=== PATIENT | male | born 1990 | race Caucasian/White ===

== ENCOUNTER 2016-06-27 21:28 | Emergency (ER) | payer OTHER ==
[2016-06-27 21:44] VITALS: BP 120/72; PULSE 95; BMI 24.9
[2016-06-27] MEDS ORDERED: ACETAMINOPHEN 500 MG TABLET (FP) PO ONE (22:05)
[2016-06-27] MEDS: SODIUM CHLORIDE 1,000 ML IV STA ×2 (22:06→22:12)
[2016-06-27] MEDS ORDERED: ACETAMINOPHEN 325 MG TABLET (FP) ONE (22:07)
--- NOTE | 2016-06-27 22:10 | PDOC ---
History of Present Illness - General Chief Complaint: Cold Symptoms Stated Complaint: FEVER Time Seen by Provider: 06/27/16 21:33 - History of Present Illness Initial Comments: 06/27/16 22:11 This otherwise healthy 25-year-old man presents with a three-day history of fever and sore throat. He denies drooling/change in voice. The patient has taken regular doses of "Advil cold and sinus" over the last few days with recurrent fever to 103 degrees Fahrenheit. Patient denies runny nose/earache/cough/gastrointestinal symptoms. No known contact with other people with fever or sore throat. No contact with school- aged children. Does not recall having strep pharyngitis as an adult, however, had episode of pharyngitis last year requiring incision and drainage of apparent peritonsillar abscess. No recent travel No significant past medical history On no medication except for [id number] meds, as noted above Past History - Past Medical History Allergies/Adverse Reactions: Allergies Allergy/AdvReac Type Severity Reaction Status Date / Time No Known Allergies Allergy Verified 06/04/11 18:26 Home Medications: Ambulatory Orders None 06/04/11 Azithromycin 250 mg PO DAILY #4 tablet 06/27/16 Chlorphen/Pseudoeph/Ibuprofen [Advil Allergy Sinus Caplet] 1 each PO PRN PRN Anemia: No Asthma: No Cancer: No Cardiac Disorders: No CVA: No COPD: No CHF: No Dementia: No Diabetes: No GI Disorders: No Disorders: No HTN: No Hypercholesterolemia: No Liver Disease: No Seizures: No Thyroid Disease: No Other medical history: DENIES - Surgical History Abdominal Surgery: No Appendectomy: Yes Cardiac Surgery: No Cholecystectomy: No Lung Surgery: No Neurologic Surgery: No Orthopedic Surgery: No - Psycho/Social/Smoking Cessation Hx Anxiety: No Suicidal Ideation: No Smoking History: Never smoked Hx Alcohol Use: No Drug/Substance Use Hx: No Hx Substance Use Treatment: No Review of Systems - Review of Systems Able to Perform ROS?: Yes Comments:: 12 point review of systems is negative except for what is noted in the history of present illness *Physical Exam - Vital Signs Last Vital Signs Temp Pulse Resp BP Pulse Ox 103 F H 95 H 16 120/72 97 06/27/16 21:42 06/27/16 21:42 06/27/16 21:42 06/27/16 21:42 06/27/16 21:42 - Physical Exam Comments: GENERAL: The patient is awake, alert, and fully oriented, in no acute distress. Vital signs as noted. HEAD: Normal with no signs of trauma. EYES: Pupils equal, round and reactive to light, extraocular movements intact, sclera anicteric, conjunctiva clear with no pallor. ENT: moist mucous membranes. Ears normal, nares patent Oropharynx erythematous without edema or exudates NECK: Normal range of motion, supple , JVD, or masses. Bilateral, tender anterior cervical lymphadenopathy LUNGS: Breath sounds equal, clear to auscultation bilaterally. No wheeze/ crackles. HEART: Regular rate and rhythm, normal S1 and S2 without murmur or rub. ABDOMEN: Soft/nontender/nondistended. BS wnl. No guarding or rebound. No palpable masses. No hepatosplenomegaly. EXTREMITIES: Normal range of motion, no edema. No clubbing or cyanosis. No cords, erythema, or tenderness. NEUROLOGICAL: Cranial nerves II through XII grossly intact. Normal speech, normal gait. PSYCH: Normal mood, normal affect. SKIN: Warm, Dry, normal turgor, no rashes or lesions noted. Medical Decision Making - Medical Decision Making This otherwise healthy 25-year-old man presents with a few day history of persistent fever and sore throat. Recent past history notable for what appears to have been a peritonsillar abscess last year: Patient had sore throat and needed to have a collection of pus drained from his pharynx according to patient and his family. No known contacts with school-aged children or known strep pharyngitis cases. Exam as noted above Tylenol 1 g given for fever of 103F Throat culture/quick strep sent Quick strep negative Because the patient has a history of peritonsillar abscess, persistent fever, anterior cervical lymphadenopathy and erythematous pharynx, we will empirically start azithromycin. 500 mg of azithromycin will be administered here and prescription for 2050 mg daily for the next 4 days will be transmitted to the patient's pharmacy. The patient also advised to alternate acetaminophen with ibuprofen as needed for fever; he should drink as much fluids as he can and follow-up with his general medical doctor as previously planned on June 29. He should return to the emergency room if he has extreme difficulty in swallowing or drooling, dificulty opening his jaws. *DC/Admit/Observation/Transfer Diagnosis at time of Disposition: Acute pharyngitis Qualifiers: Pharyngitis/tonsillitis etiology: unspecified etiology Qualified Code(s): J02.9 - Acute pharyngitis, unspecified - Discharge Dispostion Disposition: HOME Condition at time of disposition: Stable - Prescriptions Prescriptions: Azithromycin 250 mg PO DAILY #4 tablet - Referrals Referrals: Stephanie Vieira MD [Primary Care Provider] - 2 Days - Patient Instructions Printed Discharge Instructions: DI for Pharyngitis/Tonsillopharyngitis -- Adult Additional Instructions: rest;drink plenty of fluids alternate advil 600mg with tylenol 650mg as needed for fever azithromycin 250mg daily for 4 more days followup with your doctor on Wednesday, June 29 return to ER if you have severe throat pain/extreme difficulty swallowing - Post Discharge Activity Work/School Note: Back to School
[2016-06-27 22:44] VITALS: TEMP 102.5
[2016-06-27] MEDS ORDERED: AZITHROMYCIN 250 MG TABLET (FP) ONE (22:44)
== END 2016-06-27 22:57 | disposition home or self-care (01) ==
LOC: FER 21:28
DX: J02.9 Acute pharyngitis, unspecified (principal)
CPT/HCPCS: 87070; 87430; 99281-25

== ENCOUNTER 2018-04-14 18:21 | Emergency (ER) | payer OTHER ==
[2018-04-14 18:25] VITALS: BP 133/68; PULSE 82; TEMP 98.1; BMI 20.9
--- NOTE | 2018-04-14 20:16 | PDOC ---
History of Present Illness - History of Present Illness Initial Comments: This patient is a 27 year old male with no significant PMHx, who presents to the ER for splinter in right 4th digit. 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 He states that he tried to take the splinter out himself but believes he pushed it further in. He denies any bleeding and states that he is able to move his finger around. He is unsure of his last tetanus. Denies any fever, chills, nausea, or vomit. 04/14/18 20:18 <Katelynn Don - Last Filed: 04/14/18 22:12> <Letty Quijano - Last Filed: 04/15/18 02:31> - General Chief Complaint: Foreign Body (FB) Stated Complaint: splinter right ring finger Time Seen by Provider: 04/14/18 19:31 Past History <Katelynn Don - Last Filed: 04/14/18 22:12> - Past Medical History Anemia: No Asthma: No Cancer: No Cardiac Disorders: No CVA: No COPD: No CHF: No Dementia: No Diabetes: No GI Disorders: No Disorders: No HTN: No Hypercholesterolemia: No Liver Disease: No Seizures: No Thyroid Disease: No - Surgical History Abdominal Surgery: No Appendectomy: Yes Cardiac Surgery: No Cholecystectomy: No Lung Surgery: No Neurologic Surgery: No Orthopedic Surgery: No - Suicide/Smoking/Psychosocial Hx Smoking History: Never smoked Hx Alcohol Use: Yes (socially) Drug/Substance Use Hx: No Hx Substance Use Treatment: No <Letty Quijano - Last Filed: 04/15/18 02:31> - Past Medical History Allergies/Adverse Reactions: Allergies Allergy/AdvReac Type Severity Reaction Status Date / Time No Known Allergies Allergy Verified 04/14/18 18:23 Home Medications: Ambulatory Orders Amox-Tr/K Cl [Augmentin - 875Mg Tablet] 1 tab PO BID #10 tablet 04/14/18 Review of Systems - Review of Systems Comments:: GENERAL/CONSTITUTIONAL: No fever or chills. No weakness. HEAD, EYES, EARS, NOSE AND THROAT: No change in vision. No ear pain or discharge. No sore throat. CARDIOVASCULAR: No chest pain or shortness of breath. RESPIRATORY: No cough, wheezing, or hemoptysis. GASTROINTESTINAL: No nausea, vomiting, diarrhea or constipation. GENITOURINARY: No dysuria, frequency, or change in urination. MUSCULOSKELETAL: No joint or muscle swelling or pain. No neck or back pain. SKIN: +small puncture hole s/p wooden splinter. NEUROLOGIC: No headache, vertigo, loss of consciousness, or change in strength/ sensation. ENDOCRINE: No increased thirst. No abnormal weight change. HEMATOLOGIC/LYMPHATIC: No anemia, easy bleeding, or history of blood clots. ALLERGIC/IMMUNOLOGIC: No hives or skin allergy. 04/14/18 20:18 <Katelynn Don - Last Filed: 04/14/18 22:12> *Physical Exam - Vital Signs Last Vital Signs Temp Pulse Resp BP Pulse Ox 98.1 F 82 18 133/68 98 04/14/18 18:22 04/14/18 18:22 04/14/18 18:22 04/14/18 18:22 04/14/18 18:22 - Physical Exam Comments: GENERAL: Awake, alert, and fully oriented, in no acute distress EXTREMITIES: Normal range of motion, no edema. No clubbing or cyanosis. No erythema. Mild tenderness to right 4th digit near splinter site. NEUROLOGICAL: Normal speech, normal gait SKIN: Tiny puncture hole in right fourth digit tip distal aspect of the distal phalanx. Warm, Dry, normal turgor. <Katelynn Don - Last Filed: 04/14/18 22:12> - Vital Signs Last Vital Signs Temp Pulse Resp BP Pulse Ox 98.1 F 82 18 133/68 98 04/14/18 18:22 04/14/18 18:22 04/14/18 18:22 04/14/18 18:22 04/14/18 18:22 <Letty Quijano - Last Filed: 04/15/18 02:31> Moderate Sedation - Procedure Monitoring Vital Signs: Procedure Monitoring Vital Signs Temperature 98.1 F 04/14/18 18:22 Pulse Rate 82 04/14/18 18:22 Respiratory Rate 18 04/14/18 18:22 Blood Pressure 133/68 04/14/18 18:22 O2 Sat by Pulse Oximetry (%) 98 04/14/18 18:22 <Katelynn Don - Last Filed: 04/14/18 22:12> - Procedure Monitoring Vital Signs: Procedure Monitoring Vital Signs Temperature 98.1 F 04/14/18 18:22 Pulse Rate 82 04/14/18 18:22 Respiratory Rate 18 04/14/18 18:22 Blood Pressure 133/68 04/14/18 18:22 O2 Sat by Pulse Oximetry (%) 98 04/14/18 18:22 <Letty Quijano - Last Filed: 04/15/18 02:31> Medical Decision Making - Medical Decision Making Documentation has been prepared under my direction and personally reviewed by me in its entirety. I attest that this documented accurately reflects all work, treatment, procedures and medical decision making performed by me. As noted above, this 27-year-old man presents with a history of wooden splinter foreign body in right fourth finger , sustained today. Patient attempted removal of the foreign body; he believes that a portion is retained in soft tissue. Exam as noted. No obvious foreign body is seen on exam with tiny puncture wound visualized at fingertip. X-ray negative for foreign body. Since it is unclear whether there is an actual foreign body present, the patient will be discharged with instructions to soak finger in warm water for the next several days as well as take Augmentin 875/125 twice a day (first dose given here in the emergency room). He will be given referral information for follow-up with Dr. Rashawn Bernal with whom he should follow up within the next 5 -7 days. He return to the ER if he has worsening pain/swelling/redness in the finger <Letty Quijano - Last Filed: 04/15/18 02:31> *DC/Admit/Observation/Transfer - Attestations Scribe Attestion: 04/14/18 20:21 Documentation prepared by Katelynn Don, acting as biomedical engineering technologist for Letty Quijano MD. <Katelynn Don - Last Filed: 04/14/18 22:12> <Letty Quijano - Last Filed: 04/15/18 02:31> Diagnosis at time of Disposition: Foreign body finger - Discharge Dispostion Disposition: HOME Condition at time of disposition: Stable - Prescriptions Prescriptions: Amox-Tr/K Cl [Augmentin - 875Mg Tablet] 1 tab PO BID #10 tablet - Referrals Referrals: Rashawn Bernal MD [Staff Physician] - 1 week - Patient Instructions Printed Discharge Instructions: DI for Removal of Foreign Body From Skin Additional Instructions: Soak finger in warm water 15 minutes 3 times a day for the next 5 days Augmentin 875/125 twice a day; take with food Follow-up with Dr. Bernal within the next week (call office tomorrow to arrange appointment) Return to ER if area becomes more painful/swollen/red
[2018-04-14] MEDS ORDERED: DIPHTH,PERTUSS(ACELL),TET 0.5 ML DISP.SYRIN IM ONE ×2 (20:55→21:02)
[2018-04-14] MEDS ORDERED: AMOX TR/POT CLAV 875MG/125MG TABLETS (FP) ONE (21:11)
[2018-04-14] MEDS ORDERED: AMOX TR/POT CLAV 875MG/125MG TABLETS (FP) PO ONE (21:19)
== END 2018-04-14 21:21 | disposition home or self-care (01) ==
LOC: FER 18:21
PROC: 3E0234Z Introduction of Serum, Toxoid and Vaccine into Muscle, Percutaneous Approach (ICD-10-PCS; principal; 2018-04-14)
DX: S60.454A Superficial foreign body of right ring finger, initial encounter (principal); W22.8XXA Striking against or struck by other objects, initial encounter; Y93.89 Activity, other specified; Y92.89 Other specified places as the place of occurrence of the external cause; Y99.0 Civilian activity done for income or pay
CPT/HCPCS: 73140-TC-RT-FY; 90471; 90715; 99281-25